=== PATIENT | male | born 1960 | race African-American/Black ===

== ENCOUNTER 2019-01-06 14:38 | Emergency (ER) | payer OTHER ==
[~2019-01-06] VITALS: Ht 175.3 cm; Wt 97.5 kg
[2019-01-06 14:45] VITALS: BP 119/74
--- NOTE | 2019-01-06 14:45 | NUR ---
ED Nurse Note: Patient walked in to ED from home due to high BS x3 days. Last BS today was >500. Denies nausea/ vomiting. No c/o pain or any discomfort. Has hx of DM, HTN, athritis. Currently taking Metformin for DM. Alert and oriented, verbally responsive. Breathing even and unlabored. VSS. at bedside.
[2019-01-06 15:30] LABS: APPEARANCE,URINE CLEAR; BASOPHILS % (AUTO) 1.5 % (0.0-2.0); BILIRUBIN, URINE NEGATIVE (NEGATIVE); COLOR,URINE PALE YELLOW; EOSINOPHILS % (AUTO) 2.1 % (0.0-3.0); GLUCOSE, URINE (UA) 4+ (NEGATIVE); HEMATOCRIT 45.1 % (42.0-52.0); HEMOGLOBIN 16.2 G/DL (14.2-18.0); KETONES,URINE 2+ (NEGATIVE); LEUKOCYTE ESTERASE ,URINE NEGATIVE (NEGATIVE); LYMPHOCYTES % (AUTO) 17.2 % (20.0-45.0); MEAN CORPUSCULAR VOLUME 94 FL (80-99); MONOCYTES % (AUTO) 9.3 % (1.0-10.0); NEUTROPHILS % (AUTO) 69.9 % (45.0-75.0); NITRITE,URINE NEGATIVE (NEGATIVE); PH,URINE 5 (4.5-8.0); PLATELET COUNT 181 K/UL (150-450); PROTEIN,URINE NEGATIVE (NEGATIVE); RED BLOOD COUNT 4.78 M/UL (4.70-6.10); RED CELL DISTRIBUTION WIDTH 10.6 % (11.6-14.8); UROBILINOGEN,URINE NORMAL MG/DL (0.0-1.0); WHITE BLOOD COUNT 12.1 K/UL (4.8-10.8)
[2019-01-06] MEDS ORDERED: metFORMIN 500mg tab ORAL ONE (15:30)
--- NOTE | 2019-01-06 15:30 | Emergency Room Report ---
History of Present Illness General Chief Complaint: Abnormal Labs Source: Patient Present Illness HPI Patient is a 58-year-old male who presents after increased blood sugar at home. Patient recently traveled to [place] and had not taken his metformin for approximately 1 week. Patient was previously taking at thousand milligrams of metformin. He had prior history of type 2 diabetes. He reports feeling somewhat tired and having frequent urination. He reports feeling increased thirst. Over the past 2 days he has been having increased urine output. He denies any hematuria or vomiting. He had checked his blood sugar recently was noted to have sugar greater than 500. Gradual onset of symptoms. No current discomfort. He denies any chest pain or shortness of breath. He had not been vomiting or having any diarrhea. Allergies: Coded Allergies: No Known Allergies (Unverified , 01/06/19) Patient History Past Medical History: see triage record, DM Reviewed Nursing Documentation: PMH: Agreed; PSxH: Agreed Nursing Documentation-PMH Past Medical History: No History, Except For Hx Hypertension: Yes Hx Diabetes: Yes Review of Systems All Other Systems: negative except mentioned in HPI Physical Exam Vital Signs Date Time Temp Pulse Resp B/P (MAP) Pulse Ox O2 Delivery O2 Flow Rate FiO2 01/06/19 14:43 98.1 100 18 127/84 (98) 96 Room Air Sp02 EP Interpretation: reviewed, normal General Appearance: normal inspection, well appearing, no apparent distress, alert, GCS 15, obese Head: atraumatic ENT: normal ENT inspection, hearing grossly normal, normal voice Neck: normal inspection, full range of motion, supple, no bony tend Respiratory: normal inspection, lungs clear, normal breath sounds, no respiratory distress, no retraction, no wheezing Cardiovascular #1: regular rate, rhythm, no edema Gastrointestinal: normal inspection, normal bowel sounds, non tender, soft, no guarding, no hernia Genitourinary: no CVA tenderness Musculoskeletal: normal inspection, back normal, normal range of motion Neurologic: normal inspection, alert, oriented x3, responsive, nursery nurse III-XII nml as tested, motor strength/tone normal, speech normal Psychiatric: normal inspection, judgement/insight normal, mood/affect normal Medical Decision Making Diagnostic Impression: Primary Impression: Uncontrolled diabetes mellitus Additional Impression: Medication not available ER Course Patient presented for abnormal blood sugar. Differential diagnosis include was not limited to dehydration, electrolyte abnormality, hyperosmolar coma among others. Patient was noted to have relatively benign exam. He does not appear to be any significant distress. He was noted to have blood sugar initially which was markedly elevated. Patient started on IV hydration. He was given metformin by mouth. He was also given subcu insulin. Patient was offered admission however he declined. Patient stated he felt better want to go home. Patient was noted to have recent medication noncompliance is not patient's elevated blood sugar is likely related to this.Patient's blood sugar was noted to have improvement over time in the emergency department. Patient does not show any evidence of altered mental status. He appears to be stable for close outpatient follow-up. Patient was given prescription for metformin. He was advised to check his blood sugars at home and to return if worse. Labs Test 01/06/19 15:06 White Blood Count 12.1 K/UL (4.8-10.8) Red Blood Count 4.78 M/UL (4.70-6.10) Hemoglobin 16.2 G/DL (14.2-18.0) Hematocrit 45.1 % (42.0-52.0) Mean Corpuscular Volume 94 FL (80-99) Mean Corpuscular Hemoglobin 33.8 PG (27.0-31.0) Mean Corpuscular Hemoglobin Concent 35.8 G/DL (32.0-36.0) Red Cell Distribution Width 10.6 % (11.6-14.8) Platelet Count 181 K/UL (150-450) Mean Platelet Volume 11.3 FL (6.5-10.1) Neutrophils (%) (Auto) 69.9 % (45.0-75.0) Lymphocytes (%) (Auto) 17.2 % (20.0-45.0) Monocytes (%) (Auto) 9.3 % (1.0-10.0) Eosinophils (%) (Auto) 2.1 % (0.0-3.0) Basophils (%) (Auto) 1.5 % (0.0-2.0) Urine Color Pale yellow Urine Appearance Clear Urine pH 5 (4.5-8.0) Urine Specific [place] 1.010 (1.005-1.035) Urine Protein Negative (NEGATIVE) Urine Glucose (UA) 4+ (NEGATIVE) Urine Ketones 2+ (NEGATIVE) Urine Blood Negative (NEGATIVE) Urine Nitrite Negative (NEGATIVE) Urine Bilirubin Negative (NEGATIVE) Urine Urobilinogen Normal MG/DL (0.0-1.0) Urine Leukocyte Esterase Negative (NEGATIVE) Sodium Level 129 MMOL/L (136-145) Potassium Level 4.5 MMOL/L (3.5-5.1) Chloride Level 92 MMOL/L (98-107) Carbon Dioxide Level 25 MMOL/L (21-32) Anion Gap 12 mmol/L (5-15) Blood Urea Nitrogen 28 mg/dL (7-18) Creatinine 1.5 MG/DL (0.55-1.30) Estimat Glomerular Filtration Rate 58.4 mL/min (>60) Glucose Level 568 MG/DL (74-106) Calcium Level 9.5 MG/DL (8.5-10.1) Total Bilirubin 0.7 MG/DL (0.2-1.0) Aspartate Amino Transf (AST/SGOT) 24 U/L (15-37) Alanine Aminotransferase (ALT/SGPT) 50 U/L (12-78) Alkaline Phosphatase 155 U/L (46-116) Total Protein 8.1 G/DL (6.4-8.2) Albumin 4.0 G/DL (3.4-5.0) Globulin 4.1 g/dL Albumin/Globulin Ratio 1.0 (1.0-2.7) Last Vital Signs Date Time Temp Pulse Resp B/P (MAP) Pulse Ox O2 Delivery O2 Flow Rate FiO2 01/06/19 14:45 98.5 94 20 119/74 99 Room Air Status: improved Disposition: HOME, SELF-CARE Condition: Stable Scripts Metformin Hcl* (METFORMIN HCL*) 1,000 Mg Tablet 1000 MG ORAL DAILY, #30 TAB Prov: Sourav Pichardo MD 01/06/19 Referrals: NON PHYSICIAN (PCP) Sourav Pichardo MD Jan 06, 2019 15:30
[2019-01-06 15:44] LABS: ALANINE AMINOTRANSFERASE 50 U/L (12-78); ALKALINE PHOSPHATASE 155 U/L (46-116); ANION GAP 12 mmol/L (5-15); ASPARTATE AMINO TRANSFERASE 24 U/L (15-37); BILIRUBIN,TOTAL 0.7 MG/DL (0.2-1.0); BLOOD UREA NITROGEN 28 mg/dL (7-18); CALCIUM 9.5 MG/DL (8.5-10.1); CARBON DIOXIDE 25 MMOL/L (21-32); CHLORIDE 92 MMOL/L (98-107); CREATININE 1.5 MG/DL (0.55-1.30); POTASSIUM 4.5 MMOL/L (3.5-5.1); SODIUM 129 MMOL/L (136-145)
--- NOTE | 2019-01-06 18:00 | NUR ---
ED Nurse Note: BS 402. aware.
[2019-01-06 18:09] VITALS: BP 138/81
[2019-01-06] MEDS ORDERED: Insulin Human Regular 100units/ml 3ml SUBQ ONE (18:15)
--- NOTE | 2019-01-06 19:12 | NUR ---
HAND-OFF: Report given to Ramya BEARDEN.
--- NOTE | 2019-01-06 19:12 | NUR ---
ED Nurse Note: Patient is resting comfortably with two family members at bedside. Patient provided with a sandwich upon request along with a bag of chips. vital signs are stable, will continue to monitor.
[2019-01-06] MEDS ORDERED: METFORMIN HCL1000 M1 ORAL (20:12)
--- NOTE | 2019-01-06 20:27 | NUR ---
ED Nurse Note: Patient cleared for discharge, He and his family verbalized understanding of discharge instructions. Patient ID band removed, IV removed. APtient A&Ox3, ambulatory with steady gait and has no s/s of acute distress. Patient departed with all belongings accompanied by 2 family members.
[2019-01-06 20:28] VITALS: BP 138/81
== END 2019-01-06 20:23 | disposition home or self-care (01) ==
LOC: EMR 15:07
DX: E11.65 Type 2 diabetes mellitus with hyperglycemia (principal); I10 Essential (primary) hypertension; Z79.84 Long term (current) use of oral hypoglycemic drugs
CPT/HCPCS: 36415; 80053; 81003; 82962; 85025; 96360; 96361; 96372; 99284; J1815

== ENCOUNTER 2019-03-27 20:54 | Emergency (ER) | payer OTHER ==
[~2019-03-27] VITALS: Ht 175.3 cm; Wt 104.3 kg
[~2019-03-27 20:54] MED LIST: METFORMIN HCL1000 M1 ORAL
--- NOTE | 2019-03-27 21:15 | NUR ---
ER Nurse Note: Pt walked in c/o penial discharge for 2 days. Pt stated he had unprotected sex with partner. Pt denies pain while urinating, no frequency. Discharge is white and thick with no foul odor. ERMD at pt side, will continue to motnior.
[2019-03-27 21:18] VITALS: BP 149/91
--- NOTE | 2019-03-27 21:18 | Emergency Room Report ---
History of Present Illness General Chief Complaint: General Complaint Source: Patient Present Illness HPI Patient is a 59-year-old male who presents after increased urethral discharge. Patient reports having onset of symptoms approximately 2 days. He reports having increased dripping from his penis. He denies any fever. He denies any genital sores. Reports having recent unprotected sex. Denies any other locations of discomfort. Denies any testicular pain or swelling. Allergies: Coded Allergies: No Known Allergies (Unverified , 03/27/19) Patient History Reviewed Nursing Documentation: PMH: Agreed; PSxH: Agreed Nursing Documentation-PMH Hx Hypertension: Yes Hx Diabetes: Yes Review of Systems All Other Systems: negative except mentioned in HPI Physical Exam Vital Signs Date Time Temp Pulse Resp B/P (MAP) Pulse Ox O2 Delivery O2 Flow Rate FiO2 03/27/19 21:00 98.4 92 18 149/91 (110) 96 Room Air Sp02 EP Interpretation: reviewed, normal General Appearance: normal inspection, well appearing, no apparent distress, alert, GCS 15, non-toxic Head: atraumatic ENT: normal ENT inspection, hearing grossly normal, normal voice Neck: normal inspection, full range of motion, supple, no bony tend Respiratory: normal inspection, lungs clear, normal breath sounds, no respiratory distress, no retraction, no wheezing Cardiovascular #1: regular rate, rhythm, no edema Gastrointestinal: normal inspection, normal bowel sounds, non tender, soft, no guarding, no hernia Genitourinary: no CVA tenderness, deferred Musculoskeletal: normal inspection, back normal, normal range of motion Neurologic: normal inspection, alert, oriented x3, responsive, anesthesiology teacher III-XII nml as tested, speech normal Psychiatric: normal inspection, judgement/insight normal, mood/affect normal Medical Decision Making Diagnostic Impression: Primary Impression: Urethritis, nonspecific ER Course Patient presented for increased urethral discharge. Differential diagnosis include was not limited to urethritis, balanitis, among others. Patient appears to have a urethral discharge which will be empirically treated for cyclic transmitted infection. Patient appears to be stable for outpatient management and re-evaluation. Patient will be given prescription for oral antibiotics. He is advised to follow-up with his primary care physician for recheck for improvement. He is advised to return if worse. Last Vital Signs Date Time Temp Pulse Resp B/P (MAP) Pulse Ox O2 Delivery O2 Flow Rate FiO2 03/27/19 21:00 98.4 92 18 149/91 (110) 96 Room Air Status: improved Disposition: HOME, SELF-CARE Condition: Stable Scripts Doxycycline Monohydrate* (DOXYCYCLINE MONOHYDRATE*) 100 Mg Capsule 100 MG ORAL Q12H, #20 CAP 0 Refills Prov: Sourav Pichardo MD 03/27/19 Sourav Pichardo MD Mar 27, 2019 21:18
[2019-03-27] MEDS ORDERED: DOXYCYCLINE MO100 MG ORAL (21:19)
[2019-03-27] MEDS ORDERED: Lidocaine 1% MPF 10mg/ml 5ml INJ ONE (21:30)
[2019-03-27 21:45] VITALS: BP 149/91
--- NOTE | 2019-03-27 21:45 | NUR ---
ER Nurse Note: Patient seen, treated, medically cleared to be discharged per ERMD. Discharge instructions and prescriptons given with repeat verbalization by pt. Pt is aox4, on room air, with stable vital signs. ID band removed. Pt ambulatory; left with all belongings.
== END 2019-03-27 21:45 | disposition home or self-care (01) ==
LOC: EMR 21:40
DX: N34.2 Other urethritis (principal); I10 Essential (primary) hypertension; E11.9 Type 2 diabetes mellitus without complications
CPT/HCPCS: 96372; J0696; Z7502; 99283

== ENCOUNTER 2020-02-22 20:52 | Emergency (ER) | payer OTHER ==
[~2020-02-22] VITALS: Ht 177.8 cm; Wt 95.3 kg
[~2020-02-22 20:52] MED LIST changes: +DOXYCYCLINE MO100 MG ORAL
--- NOTE | 2020-02-22 21:10 | NUR ---
ED Nurse Note: Recieved pt from home, here with c/o elevated blood sugar level, pt was drinking margaritas and states his readuing at home was high, pt took oral metformin and came here, currentl blood sugar level is 237, no s/s of hyperglycemia or any other complaints or discomforts.
[2020-02-22] MEDS ORDERED: Insulin Human Regular 100units/ml 3ml SUBQ ONE (21:15)
[2020-02-22 22:00] VITALS: BP 131/88
--- NOTE | 2020-02-22 22:00 | NUR ---
ER DISCHARGE NOTE: Patient is cleared to be discharged per ERMD, pt is aox4, on room air, with stable vital signs. pt was given dc instructions, pt was able to verbalize understanding, pt id band removed without complications. pt is able to ambulate with steady gait. pt took all belongings.
--- NOTE | 2020-02-27 07:21 | Emergency Room Report ---
History of Present Illness General Chief Complaint: Abnormal Labs Source: Patient Present Illness HPI 59-year-old male presents to ED for evaluation. History of diabetes. States he checked his sugar today and it was over 400. Takes metformin. States he sometimes is not compliant with his medication. Denies any dizziness or weakness. Denies chest pain or shortness of breath. No other aggravating relieving factors. Denies any other associated symptoms Allergies: Coded Allergies: No Known Allergies (Unverified , 03/27/19) COVID-19 Screening Contact w/high risk pt: No Experienced COVID-19 symptoms?: No COVID-19 Testing performed MECHANICAL ENGINEER: No Patient History Past Medical History: HTN Past Surgical History: none Pertinent Family History: none Social History: Denies: smoking, alcohol use, drug use Immunizations: UTD Reviewed Nursing Documentation: PMH: Agreed; PSxH: Agreed Nursing Documentation-PMH Hx Hypertension: Yes Hx Diabetes: Yes Review of Systems All Other Systems: negative except mentioned in HPI Physical Exam Sp02 EP Interpretation: reviewed, normal General Appearance: no apparent distress, alert, GCS 15, non-toxic Head: normocephalic, atraumatic Eyes: bilateral eye normal inspection, bilateral eye PERRL ENT: hearing grossly normal, normal pharynx, no angioedema, normal voice Neck: full range of motion, supple/symm/no masses Respiratory: chest non-tender, lungs clear, normal breath sounds, speaking full sentences Cardiovascular #1: regular rate, rhythm, no edema Cardiovascular #2: 2+ carotid (R), 2+ carotid (L), 2+ radial (R), 2+ radial (L), 2+ dorsalis pedis (R), 2+ dorsalis pedis (L) Gastrointestinal: normal bowel sounds, non tender, soft, non-distended, no guarding, no rebound Rectal: deferred Genitourinary: normal inspection, no CVA tenderness Musculoskeletal: back normal, normal range of motion, gait/station normal, non- tender Neurologic: alert, motor strength/tone normal, oriented x3, sensory intact, responsive, speech normal Psychiatric: judgement/insight normal, memory normal, mood/affect normal, no suicidal/homicidal ideation Reflexes: 3+ bicep (R), 3+ bicep (L), 3+ tricep (R), 3+ tricep (L), 3+ knee (R), 3+ knee (L) Lymphatic: no adenopathy Medical Decision Making Diagnostic Impression: Primary Impression: Hyperglycemia ER Course Hospital Course 59-year-old male presenting to ED with elevated BS. not compliant with his meds Differential diagnoses include: ETOH/drug ingestion, sepsis, DKA Clinical course Patient placed on stretcher. Initial history physical exam reveals male in no acute distress. Physical exam unremarkable. Accu-Chek 237. Asymptomatic. I offered to check labs in place IV and give flui ds but patient declined. Agreed to insulin subcu here. Safe for discharge close outpatient follow-up. States he has a PMD. States he has his metformin. Encouraged the importance of compliance with his medication. i. I feel this is a highly complex case requiring extensive working including EKG/Rhythm strip, Xray/CT/US, Blood/urine lab work, repeat exams while in ED, and administration of strong opiates/narcotics for pain control, admission to hospital or close patient follow up. diagnosis - hyperglycemia Stable and discharged to home. Followup with PMD. Return to ED if symptoms recur or worsen Status: improved Disposition: HOME, SELF-CARE Condition: Stable Patient Instructions: Hyperglycemia, [id number] Nasir Menjivar MD Feb 27, 2020 07:21
== END 2020-02-22 22:00 | disposition home or self-care (01) ==
LOC: EMR 21:16
DX: E11.65 Type 2 diabetes mellitus with hyperglycemia (principal); I10 Essential (primary) hypertension; Z91.14 Patient's other noncompliance with medication regimen
CPT/HCPCS: 82962; 96372; J1815; Z7502; 99283